=== PATIENT | male | born 1945 | race Caucasian/White ===

== ENCOUNTER 2016-05-03 04:01 | Emergency (ER) | payer BC ==
[2016-05-03 02:04] LABS: BASOPHILS 0.3 %; BASOPHILS ABSOLUTE 0.03 10/3/uL (0.0-0.16); EOSINOPHILS 0.2 %; EOSINOPHILS ABSOLUTE 0.02 10/3/uL (0.0-0.53); ER CBC TAT 0 Hrs 09 Mins; HEMATOCRIT 40.9 % (40.0-51.0); HEMOGLOBIN 13.8 g/dL (13.6-17.8); IMMATURE GRANULOCYTES 0.3 %; IMMATURE GRANULOCYTES ABSOLUTE 0.03 10/3/uL (0.0-0.11); LYMPHOCYTES ABSOLUTE 0.82 10/3/uL (0.67-4.30); MEAN CORPUS HGB CONC 33.7 g/dL (32.0-36.0); MEAN CORPUSCULAR HEMOGLOB 31.9 pg (26.0-34.0); MEAN CORPUSCULAR VOLUME 94.7 fL (80-100); MEAN PLATELET VOLUME 9.3 fL (9.2-13.0); MONOCYTES 8.6 %; MONOCYTES ABSOLUTE 0.88 10/3/uL (0.21-1.20); NEUTROPHILS 82.6 %; PLATELET COUNT 168 10/3/uL (150-400); RBC DISTRIBUTION WIDTH 12.8 % (12.0-16.0); RED CELL COUNT 4.32 10/6/uL (4.7-6.1); WHITE BLOOD CELLS 10.3 10/3/uL (4.5-10.5)
[2016-05-03 02:09] LABS: MANUAL DIFF NO %
[2016-05-03 02:14] LABS: CHLORIDE, SERUM 107 MMOL/L (96-112); GFR AFRICAN AMERICAN 100 ML/MIN (>=60); GFR NON AFRICAN AMERICAN 86 ML/MIN (>=60); GLUCOSE, SERUM 121 MG/DL (60-99); SODIUM, SERUM 141 MMOL/L (135-148)
[2016-05-03 02:16] LABS: BUN (BLOOD UREA NITROGEN) 18 MG/DL (6-23); CO2 (CARBON DIOXIDE) 23 MMOL/L (24-34)
[2016-05-03 03:43] LABS: ASCORBIC ACID (UR NOT ORDER) NEG (NEG); BILIRUBIN, URINE NEGATIVE (NEG); ER URINALYSIS TAT 0 Hrs 00 Mins; KETONE, URINE NEGATIVE (NEG); LEUKOCYTE ESTERASE(NOT OR NEG (NEG); WBC (NOT ORDERED) (RFLEX) 41 (0-5)
[2016-05-03 03:44] LABS: NITRITE (URINE) POS (NEG)
[~2016-05-03 04:01] MED LIST: ADVIL PO; DEPO-TESTOS200 MG/ML IM; ELIQUIS 5 MG TAB5 MG PO; FISH OIL300 MG PO; FLECAINIDE100 MG PO; FLOMAX4 PO; FLONASE NAS; ILA60 PO; INDE80LA PO; INNOPRAN XL120 MG PO; MULTIVIT/MIN PO; NORCO1 TA1 PO; OTC FISH OIL PO; OTC VITAMIN B-12 PO; PROAIR HFA INH; VITAMIN B-121000 MC1 SL; X5 PO
[2016-05-03 04:53] LABS: INTERNATIONAL NORMAL RATI 1.2 UNITS (-); PARTIAL THROMBO TIME 36.2 SEC (22.5-37.2)
[2016-05-03 04:56] LABS: PROTIME (NOT ORD) 15.3 SEC (12.0-14.5)
== END 2016-05-03 04:50 | disposition home or self-care (01) ==
LOC: ER 04:01
PROVIDERS: Nurse Practitioner; Specialist
DX: N39.0 Urinary tract infection, site not specified (principal); I48.91 Unspecified atrial fibrillation; Z87.442 Personal history of urinary calculi; Z87.891 Personal history of nicotine dependence; Z88.1 Allergy status to other antibiotic agents; Z79.899 Other long term (current) drug therapy
CPT/HCPCS: 74176; 80048; 81001; 85025; 85610; 85730; 87086; 96372; 99284; J1170